=== PATIENT | male | born 1955 | race Caucasian/White ===

== ENCOUNTER → 2016-05-20 | Outpatient (CLI) | payer OTHER ==
--- NOTE | 2016-05-21 10:35 | P.PN ---
Subjective This is follow-up visit for this patient with a history of severe and chronic abdominal pain and generalized joint pain, patient had a history of non-Hodgkin lymphoma, status post chemo therapy and patient had thrombocytopenia and low white blood counts, for this reason patient is not a candidate for interventional pain management, , and is currently on pain medications 1-[place] 10/325 every 8 hours 2-A, 100 mg twice a day Patient denies any side effects of the medication, denies excessive drowsiness or sleepiness, denies suicidal ideation, and reports that the current pain medication is NOT helping To control the pain and improve activity of daily living the patient reported that he had cellulitis in his left foot area Physical Examinations : 1-Constitutiona : Cooperative , not in acute distress . 2-HEENT : nech ; supple , no Lymphadenopathy , no Thyromegaly , normal thyroid size . eyes : no ptosis , no icterus, no photophobia . ENT : normal of hearing , normal oropharynx , no Thrush . 3- Respiratory : Chest clear to auscultations Bilaterally , no wheezing , no Rhonchi . 4- Cardiovascular : regular rate and rhythem , S1 , S2 , no S3 , no S4. 5- Gastrointestinal : abdomen soft , bowel sounds positive all 4 quadrants 6- Genitourinary : Defferred . 7- neurologic : Cranial nerve II to XII intact , no focal neurological deffecit . 8-psychatric : alert , oriented X 3 , appropriate affect , intact judgment and insight . 9-Lymphatic : no Lymphadenopathy . 10- musculoskeltal : Cellulitis left foot area Assessment and plan = Chronic pain syndrome, pain related to malignancy (non-Hodgkin lymphoma ) , patient denies any side effect of the medication but he reported the current regimen is not helping enough, I will increase the dose of [place] to 10/325 every 6 hours dispense 120 with one refill, and [id number] and milligrams 3 times a day (anticipation of receiving Lyrica 100 mg twice a day) and patient will be referred to the wound clinic for evaluation regarding his left foot wound Objective - Vital Signs Vital signs: Intake & Output 05/20/16 05/21/16 05/21/16 18:59 06:59 18:59 Weight 92.986 kg
== END | disposition home or self-care (01) ==
LOC: PNWHC3 13:17
PROVIDERS: ATTEND Specialist
DX: G89.4 Chronic pain syndrome (principal); G89.3 Neoplasm related pain (acute) (chronic); C85.90 Non-Hodgkin lymphoma, unspecified, unspecified site; D69.6 Thrombocytopenia, unspecified; L03.116 Cellulitis of left lower limb; Z92.21 Personal history of antineoplastic chemotherapy; Z79.899 Other long term (current) drug therapy; Z79.891 Long term (current) use of opiate analgesic
CPT/HCPCS: 99211

== ENCOUNTER → 2016-07-09 | Outpatient (CLI) | payer OTHER ==
--- NOTE | 2016-07-15 12:48 | P.ARTDOP ---
Arterial Doppler LOWER EXTREMITY ARTERIAL DOPPLER: DATE OF SERVICE: 07/09/2016 Reason for study: Left ankle ulcer. Doppler waveforms: Multiphasic bilaterally throughout. Pulse volume recording: Normal configuration. Pressure gradients: None. Ankle-brachial indices: Greater than 1 bilaterally. Toe pressures: 85 on the right, 54 on the left Impression: Possible mild distal disease on the left. Circulatory status probably adequate for healing. No proximal disease noted clinical correlation recommended.
== END | disposition home or self-care (01) ==
LOC: RADUSWWP 09:31
PROVIDERS: ATTEND Family Medicine
DX: E11.622 Type 2 diabetes mellitus with other skin ulcer (principal); L97.321 Non-pressure chronic ulcer of left ankle limited to breakdown of skin
CPT/HCPCS: 93923

== ENCOUNTER → 2016-07-15 | Outpatient (CLI) | payer OTHER ==
[2016-07-15 15:56] VITALS: BP 124/72; PULSE 78; RESP 16; TEMP 98.1
--- NOTE | 2016-07-15 16:20 | P.CONS ---
History of Present Illness - Reason for Consult Consult date: 07/15/16 - Chief Complaint Neck pain and low back pain - History of Present Illness This pleasant 61-year-old male returns to the [facility] pain clinic today for continued evaluation of possible therapeutic intervention with regards to his chronic pain related complaints. He is interviewed, examined, and the chart is reviewed in full with the patient's full consent. Mr. Reynolds presents today complaining of a persistent neck pain with radiation into his shoulders and down his arms. In addition to this cervical radiculopathy-type symptoms, he also describes pain in his low back both in the midline and in the bilateral paravertebral area. Increased amounts of activity, sudden or rapid position changes also exacerbate both the neuraxial as well as radicular component to his pain. At many times during the day can find no position of comfort in his ability to tolerate some the simplest activities of his daily life has been markedly curtailed. This increasing functional limitations what eventually prompted him to seek more aggressive therapeutic intervention. At the time of his last visit because of increased levels of discomfort we raised his Jerome dosing to 10 mg 4 times daily. Unfortunately since this time Mr. Reynolds has begun to complain of some dizziness and/or dysphoria, which he attributes possibly to the increased level of opiates. At this point time I had a discussion with Mr. Reynolds regarding a variety of clinical situations. I advised him that he is increasing sedation and/or dizziness and uneasiness with a level of medications may in fact be partially due to the Lyrica and/or his increased Jerome levels. He greeted drop back his Jerome dosing to 3 times a day at the 10 mg level, monitor any changes associated with that and be ready to drop his Lyrica administration to 200 mg twice a day rather than his current level of 300. Hopefully these changes will make a difference in his quality of life and his ability to tolerate more of the activities he wishes to pursue. Prescriptions were written for him at the new dosing levels, and I instructed him to return to the [facility] clinic in 60 days at which time we will evaluate the efficacy of this new pharmacologic regimen. We of course would make results immediately available should the need arise and I told him he could call us at any time if he needed any additional intervention. Thank you so much for allowing us to participate in this very nice gentleman's care Past Medical History Past Medical History: Cancer, COPD, Diabetes Mellitus, Hypertension, Seizure Disorder Additional Past Medical History / Comment(s): LAST SEIZURE 40 YRS AGO, DIABETIC NEUROPATHY,EMPHYSEMA, cellulitis left leg. T cell nonhodgkins lymphoma since 2012. Currently havng treatment at the wound center for l ankle cellulitis. History of Any Multi-Drug Resistant Organisms: None Reported Past Surgical History: Hernia Repair Additional Past Surgical History / Comment(s): X3 Past Anesthesia/Blood Transfusion Reactions: No Reported Reaction Past Psychological History: Anxiety, Depression Smoking Status: Former smoker Past Alcohol Use History: Occasional Past Drug Use History: None Reported - Past Family History Sister(s) Family Medical History: Diabetes Mellitus Mother Family Medical History: COPD Medications and Allergies Home Medications Medication Instructions Recorded Confirmed Type Loratadine [Claritin] 10 mg PO QAM 04/17/14 07/15/16 History Pravastatin Sodium [Pravachol] 10 mg PO DAILY 04/17/14 07/15/16 History Insulin Glargine [Lantus] 15 unit SQ DAILY 04/26/14 07/15/16 History Albuterol Inhaler [Ventolin 1 - 2 puff INHALATION Q6HR PRN 10/01/14 07/15/16 History Inhaler] Multivitamin [Men's Multi-Vitamin] 1 each PO DAILY 10/01/14 07/15/16 History Sertraline HCl [Zoloft] 50 mg PO DAILY 10/01/14 07/15/16 History Metoprolol Succinate (ER) [Toprol 25 mg PO DAILY 07/10/15 07/15/16 History Xl] Insulin Aspart [NovoLOG] 2 unit SQ QID 03/24/16 07/15/16 History Omeprazole 20 mg PO DAILY 03/25/16 07/15/16 History Mupirocin 2% Oint [Bactroban 2% 1 applic TOPICAL DAILY 06/11/16 07/15/16 History Oint] Sulfamethox-Tmp 800-160Mg [Bactrim 1 tab PO Q12HR 07/06/16 07/15/16 History DS 800-160 mg] Allergies Allergy/AdvReac Type Severity Reaction Status Date / Time levofloxacin [From Levaquin] Allergy Rash/Hives Verified 07/09/16 11:08 metronidazole [From Flagyl] Allergy Rash/Hives Verified 07/09/16 11:08 amoxicillin [From Augmentin] AdvReac Diarrhea Verified 07/09/16 11:08 clavulanic acid AdvReac Diarrhea Verified 07/09/16 11:08 [From Augmentin] Physical Exam Osteopathic Statement: *. No significant issues noted on an osteopathic structural exam other than those noted in the History and Physical/Consult. Vitals: Vital Signs Temp Pulse Resp BP Pulse Ox 07/15/16 15:38 98.1 F 78 16 124/72 97 Intake and Output 07/15/16 07/15/16 07/15/16 06:59 14:59 22:59 Other: Weight 88.451 kg Patient Weight 07/16/16 06:59 Weight 88.451 kg
== END | disposition home or self-care (01) ==
LOC: PNWHC3 14:28
PROVIDERS: ATTEND Anesthesiology
DX: Z79.899 Other long term (current) drug therapy (principal); R42 Dizziness and giddiness; Z87.891 Personal history of nicotine dependence; Z79.4 Long term (current) use of insulin; Z88.1 Allergy status to other antibiotic agents; Z88.8 Allergy status to other drugs, medicaments and biological substances; J44.9 Chronic obstructive pulmonary disease, unspecified; I10 Essential (primary) hypertension; G40.909 Epilepsy, unspecified, not intractable, without status epilepticus; E11.40 Type 2 diabetes mellitus with diabetic neuropathy, unspecified
CPT/HCPCS: 99211

== ENCOUNTER → 2016-08-12 | Outpatient (CLI) | payer OTHER ==
[2016-08-12 14:47] VITALS: BP 123/81; PULSE 76; RESP 16; TEMP 98.1
--- NOTE | 2016-08-12 15:15 | P.PN ---
Progress Note - Text This is a 61-year-old gentleman with history of non-Hodgkin lymphoma and widespread body pain with recent pain in the left ankle due to a nonhealing wound. The patient also has poorly controlled diabetes. He still gets dizziness and he is being worked up for that at his primary care physician. The patient is receiving no chemotherapy at this time. The patient has soft nontender distended abdomen with large spleen. The patient lives by himself and has no support system Today I will continue with the [place] 10 mg 3 times a day and Lyrica at 300 mg a day. The patient looks depressed today I'll very denies any suicidal thoughts. The patient is to be referred to his primary care physician for the patient treatment. I will see the patient 2 months from now.
== END | disposition home or self-care (01) ==
LOC: PNWHC3 14:22
PROVIDERS: ATTEND Anesthesiology
DX: S91.002A Unspecified open wound, left ankle, initial encounter (principal); E11.9 Type 2 diabetes mellitus without complications; Z85.72 Personal history of non-Hodgkin lymphomas
CPT/HCPCS: 99211

== ENCOUNTER → 2016-10-07 | Outpatient (CLI) | payer OTHER ==
--- NOTE | 2016-10-07 14:50 | P.PN ---
Progress Note - Text Patient returns for followup for chronic knee and abdominal pain with radiation to back. Patient has history of non-Hodgkin's lymphoma and cannot have interventions secondary to thrombocytopenia. Patient continues on [place] and Lyrica medications for pain with some relief and is not undergoing chemotherapy at this time, although he did recently have bronchitis and was coughing quite a bit, and has been having some muscular pain on the right side of his abdomen for the past few days; this is improving. Patient denies adverse drug effects from medications. Today, pt denies new-onset weakness, bowel/bladder incontinence, or any other signs or symptoms of cauda equina syndrome. There are no signs of acute intoxication, and no indications of medication diversion or overuse. In addition to above, 13-point review of systems is also negative for chest pain , shortness of breath, changes in vision, changes in hearing, new onset weakness , abdominal pain, diarrhea, extreme fatigue, malaise, fever, skin changes, homicidal or suicidal ideation, or bowel or bladder incontinence. Vital Signs: Reviewed in EMR Gen: WDWN, AAOx3, NAD HEENT: NCAT, EOMI, hearing grossly normal Pulm: resp unlabored Abd: soft, TTP LUQ Neck: supple, trachea midline Lower extremity: decreased ROM knee flexion/extension secondary to pain Neuro: CN II-XII grossly intact, muscle strength lower extremities PRESERVED Imaging: Reviewed in EMR Assessment: 1. non-Hodgkin's lymphoma 2. chronic pain syndrome Plan: 1. Explanation: Opioid and psychological risk scores were reviewed. Diagnoses , prognoses, and multiple treatment options including but not limited to physical therapy, interventional therapies, adjuvant medical therapies, narcotic medication therapies, and surgery were discussed with the patient and all questions were answered to the patient's satisfaction. 2. Opioid agreement: Patient has previously signed narcotic agreement, and was orally counseled to not overuse, abuse, divert, or cell medications, and to take them as prescribed by only 1 healthcare provider. The patient was also counseled to store opioid medications in a safe and preferably locked location. Patient was also counseled against driving while using narcotic medications and also to not use alcohol or any illicit or recreational drugs. The patient verbalized understanding that lack of compliance with any of the above and likely result in failure to renew narcotic prescriptions, possible discharge from the clinic, and possible legal ramifications thereafter if indicated. 3. Counseling: The patient was counseled extensively on BODY MASS INDEX, EXERCISE. Specifically, the patient was instructed regarding the importance of smoking cessation, obesity, and exercise in the context of both chronic pain and overall health. 4. Procedures: none 5. Consultations: None 6. Investigations: None 7. Medications: [place] refilled 10 mg po TID #90 with no refills (for October, patient has meds for September), continue Lyrica at same dose 100 mg #90 with one refill 8. Disposition: f/u for re-eval in 8 weeks PQRS measures: 1-Patient's medications are documented in the chart. 2-Tobacco use is negative 3-Patient has not had a pneumococcal vaccine. 4-Advanced care planning discussed, patient unable to give. 5-Opioid contract signed with the patient. 6-Pain positive, follow-up visit or procedure scheduled 7-Patient's blood pressure measured and documented, and patient will follow up with the primary care due to hypertension. 8-Patient's weight was measured, and body mass index ABOVE the normal limits, and counseling was done. Patient instructed to follow up with PCP. 9-Patient WAS NOT identified as an unhealthy alcohol user.
[2016-10-07 14:55] VITALS: BP 143/88; PULSE 95; RESP 18; TEMP 98.6
== END | disposition home or self-care (01) ==
LOC: PNWHC3 14:33
PROVIDERS: ATTEND Anesthesiology
DX: C85.90 Non-Hodgkin lymphoma, unspecified, unspecified site (principal); G89.4 Chronic pain syndrome
CPT/HCPCS: 99211

== ENCOUNTER → 2016-11-19 | Outpatient (CLI) | payer OTHER ==
--- NOTE | 2016-11-19 09:26 | CT ---
EXAMINATION TYPE: CT chest wo con DATE OF EXAM: 11/19/2016 COMPARISON: 04/07/2016 HISTORY: SOB, COUGH CT DLP: 411.80 mGycm, Automated exposure control for dose reduction was used. CONTRAST: Performed injected with 0 mL of Omnipaque 300. TECHNIQUE: Axial images were obtained at 5 mm thick sections. Reconstructed images are reviewed on [employer] computer in the coronal plane. FINDINGS: Portion of the thyroid visualized is normal. Previous left lateral lung base nodules not identified. There is however in the same region some mini mal thickening which currently measures 0.5 x 0.8 cm in size which could correspond to the previous f inding. This appears slightly smaller than comparison. Scattered emphysematous blebs and bulla are pr esent within the lung olguin.. No enlarged mediastinal or hilar adenopathy is evident. The ascending aorta diameter at the level o f the main pulmonary artery is 3.6 cm. The main pulmonary artery diameter at the bifurcation is 2.9 cm. Coronary artery calcification is present. Limited CT sections are obtained through the upper abdomen. Some thickening of the gallbladder wall o r pericholecystic fluid may be present. Sludge within the gallbladder should be considered. This can be further evaluated with ultrasound. Spleen appears enlarged as visualized. IMPRESSIONS: 1. Tiny stable nodule left lung base. Continued follow-up with CT chest in 6 months is recommended. 2. Splenomegaly. 3. Abnormal findings of the gallbladder. Consider ultrasound of the right upper quadrant for closer e valuation.
== END | disposition home or self-care (01) ==
LOC: RADCTMAIN 08:31
PROVIDERS: ATTEND Internal Medicine Pulmonary Disease
DX: R91.1 Solitary pulmonary nodule (principal)
CPT/HCPCS: 71250

== ENCOUNTER → 2016-12-02 | Outpatient (CLI) | payer OTHER ==
[2016-12-02 14:04] VITALS: PULSE 83; RESP 14; TEMP 98.4
--- NOTE | 2016-12-02 14:30 | P.PN ---
Progress Note - Text Patient returns for followup for chronic knee and abdominal pain with radiation to back. Patient has history of non-Hodgkin's lymphoma and cannot have interventions secondary to thrombocytopenia. Patient continues on [place] and Lyrica medications for pain with some relief, but is requesting naproxen to take at dinnertime. Patient denies adverse drug effects from medications. Today, pt denies new-onset weakness, bowel/bladder incontinence, or any other signs or symptoms of cauda equina syndrome. There are no signs of acute intoxication, and no indications of medication diversion or overuse. In addition to above, 13-point review of systems is also negative for chest pain , shortness of breath, changes in vision, changes in hearing, new onset weakness , abdominal pain, diarrhea, extreme fatigue, malaise, fever, skin changes, homicidal or suicidal ideation, or bowel or bladder incontinence. Vital Signs: Reviewed in EMR Gen: WDWN, AAOx3, NAD HEENT: NCAT, EOMI, hearing grossly normal Pulm: resp unlabored Abd: soft, TTP LUQ Neck: supple, trachea midline Lower extremity: decreased ROM knee flexion/extension secondary to pain Neuro: CN II-XII grossly intact, muscle strength lower extremities PRESERVED Imaging: Reviewed in EMR Assessment: 1. non-Hodgkin's lymphoma 2. chronic pain syndrome Plan: 1. Explanation: Opioid and psychological risk scores were reviewed. Diagnoses , prognoses, and multiple treatment options including but not limited to physical therapy, interventional therapies, adjuvant medical therapies, narcotic medication therapies, and surgery were discussed with the patient and all questions were answered to the patient's satisfaction. 2. Opioid agreement: Patient has previously signed narcotic agreement, and was orally counseled to not overuse, abuse, divert, or cell medications, and to take them as prescribed by only 1 healthcare provider. The patient was also counseled to store opioid medications in a safe and preferably locked location. Patient was also counseled against driving while using narcotic medications and also to not use alcohol or any illicit or recreational drugs. The patient verbalized understanding that lack of compliance with any of the above and likely result in failure to renew narcotic prescriptions, possible discharge from the clinic, and possible legal ramifications thereafter if indicated. 3. Counseling: The patient was counseled extensively on BODY MASS INDEX, EXERCISE. Specifically, the patient was instructed regarding the importance of smoking cessation, obesity, and exercise in the context of both chronic pain and overall health. 4. Procedures: none 5. Consultations: None 6. Investigations: None 7. Medications: [place] refilled 10 mg po TID #90 with two refills, continue Lyrica at same dose 100 mg #90 with two refills, start naproxen 250 mg #60 to be taken up to BID with two refills. I instructed patient to ask his oncologist whether or not NSAIDs would be OK given his thrombocytopenia. 8. Disposition: f/u for re-eval in 12 weeks PQRS measures: 1-Patient's medications are documented in the chart. 2-Tobacco use is negative 3-Patient has not had a pneumococcal vaccine. 4-Advanced care planning discussed, patient unable to give. 5-Opioid contract signed with the patient. 6-Pain positive, follow-up visit or procedure scheduled 7-Patient's blood pressure measured and documented, and patient will follow up with the primary care due to hypertension. 8-Patient's weight was measured, and body mass index ABOVE the normal limits, and counseling was done. Patient instructed to follow up with PCP. 9-Patient WAS NOT identified as an unhealthy alcohol user.
== END ==
LOC: PNWHC3 13:38
PROVIDERS: ATTEND Anesthesiology
DX: C85.90 Non-Hodgkin lymphoma, unspecified, unspecified site (principal); Z79.891 Long term (current) use of opiate analgesic; Z79.899 Other long term (current) drug therapy
CPT/HCPCS: 99211

== ENCOUNTER 2017-02-07 09:50 | Emergency (ER) | payer OTHER ==
[2017-02-07 09:58] VITALS: TEMP 99.2
[2017-02-07] MEDS ORDERED: KETOROLAC 30 MG/ML 1 ML VIAL IVP STA (10:22)
--- NOTE | 2017-02-07 10:25 | ED ---
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 He was brought in by EMS after he states he fell because his knees and ankles gave out. He states he fell on his right side. Complains of pain and was left hip and left knee. He states he also hit his head. He denies any head pain he states he has chronic neck pain to his lower neck he denies any back or other injury. No nausea vomiting loss consciousness. Patient states he has 9/10 pain but is always had severe. MD Complaint: fall, other - Related Data Home Medications Medication Instructions Recorded Confirmed Loratadine [Claritin] 10 mg PO QAM 04/17/14 02/02/17 Pravastatin Sodium [Pravachol] 10 mg PO DAILY 04/17/14 02/02/17 Insulin Glargine [Lantus] 25 unit SQ DAILY 04/26/14 02/02/17 Albuterol Inhaler [Ventolin 1 - 2 puff INHALATION Q6HR PRN 10/01/14 02/02/17 Inhaler] Multivitamin [Men's Multi-Vitamin] 1 each PO DAILY 10/01/14 02/02/17 Sertraline HCl [Zoloft] 50 mg PO DAILY 10/01/14 02/02/17 Metoprolol Succinate (ER) [Toprol 25 mg PO DAILY 07/10/15 02/02/17 Xl] Insulin Aspart [NovoLOG] 2 unit SQ QID 03/24/16 02/02/17 Omeprazole 20 mg PO DAILY 03/25/16 02/02/17 Previous Rx's Medication Instructions Recorded HYDROcodone/APAP 10-325MG [[place] 10 mg PO Q8HR PRN #90 tab 12/02/16 10-325] Naproxen [Naprosyn] 250 mg PO BID PRN #60 tab 12/02/16 Pregabalin [Lyrica] 100 mg PO Q8HR #90 cap 08/16/17 Sulfamethox-Tmp 800-160Mg [Bactrim 1 tab PO Q12HR #60 tab 02/02/17 DS 800-160 mg] Ibuprofen 800 mg PO Q6HR PRN #20 tablet 02/07/17 Allergies Allergy/AdvReac Type Severity Reaction Status Date / Time levofloxacin [From Levaquin] Allergy Rash/Hives Verified 02/07/17 09:58 metronidazole [From Flagyl] Allergy Rash/Hives Verified 02/07/17 09:58 amoxicillin [From Augmentin] AdvReac Diarrhea Verified 02/07/17 09:58 clavulanic acid AdvReac Diarrhea Verified 02/07/17 09:58 [From Augmentin] Review of Systems ROS Statement: Those systems with pertinent positive or pertinent negative responses have been documented in the HPI. ROS Other: All systems not noted in ROS Statement are negative. Past Medical History Past Medical History: Cancer, COPD, Diabetes Mellitus, Hypertension, Seizure Disorder Additional Past Medical History / Comment(s): LAST SEIZURE 40 YRS AGO, DIABETIC NEUROPATHY,EMPHYSEMA, cellulitis left leg. T cell nonhodgkins lymphoma since 2012. Currently havng treatment at the wound center for l ankle cellulitis. History of Any Multi-Drug Resistant Organisms: None Reported Past Surgical History: Hernia Repair Additional Past Surgical History / Comment(s): X3 Past Anesthesia/Blood Transfusion Reactions: No Reported Reaction Past Psychological History: Anxiety, Depression Smoking Status: Former smoker Past Alcohol Use History: Occasional Past Drug Use History: None Reported - Past Family History Sister(s) Family Medical History: Diabetes Mellitus Mother Family Medical History: COPD General Exam - General Exam Comments Initial Comments: Is a well-developed well-nourished awake alert oriented 3 male he does demonstrate a [place] Scale of 15 Limitations: physical limitation General appearance: alert, in no apparent distress Head exam: Present: atraumatic, normocephalic, normal inspection Eye exam: Present: normal appearance, PERRL, EOMI. Absent: scleral icterus, conjunctival injection, periorbital swelling ENT exam: Present: mucous membranes dry Neck exam: Present: normal inspection, tenderness (Tennis palpation of the C7 C6 paraspinous muscles no definite spinous process tenderness. No step-off or crepitation). Absent: meningismus, lymphadenopathy Respiratory exam: Present: normal lung sounds bilaterally. Absent: respiratory distress, wheezes, rales, rhonchi, stridor Cardiovascular Exam: Present: regular rate, normal rhythm, normal heart sounds. Absent: systolic murmur, diastolic murmur, rubs, gallop, clicks GI/Abdominal exam: Present: soft, normal bowel sounds. Absent: distended, tenderness, guarding, rebound, rigid Rectal exam: Present: deferred Extremities exam: Present: normal inspection, full ROM, tenderness (Tennis palpation over both hips no step-off or crepitation no shortening or rotation. If the dressing seen over the left lower extremity consistent with the stated wound this under treatment. The left knee is slightly edematous compared to the right tenderness to palpation with no step-off crepitation or deformity noted.), normal capillary refill. Absent: pedal edema, joint swelling, calf tenderness Back exam: Present: normal inspection Neurological exam: Present: alert, oriented X3, CN II-XII intact Psychiatric exam: Present: normal affect, normal mood Skin exam: Present: warm, dry, normal color. Absent: rash Course Vital Signs 02/07/17 09:51 Temperature 99.2 F Pulse Rate 106 H Respiratory 20 Rate Blood Pressure 141/74 O2 Sat by Pulse 94 L Oximetry Medical Decision Making - Medical Decision Making I did discuss findings with the patient he'll be discharge is follow-up with his doctor and with orthopedics he does have an appointment to see Dr. Garnett in 2 days. - Lab Data Result diagrams: 02/07/17 11:03 02/07/17 11:03 Lab Results 02/07/17 02/07/17 02/07/17 Range/Units 11:03 11:03 11:03 WBC 2.7 L (3.8-10.6) k/uL RBC 4.14 L (4.30-5.90) m/uL Hgb 11.0 L (13.0-17.5) gm/dL Hct 33.5 L (39.0-53.0) % MCV 80.9 (80.0-100.0) fL MCH 26.6 (25.0-35.0) pg MCHC 32.9 (31.0-37.0) g/dL RDW 18.4 H (11.5-15.5) % Plt Count 71 L (150-450) k/uL Neutrophils % (Manual) 48 % Band Neutrophils % 2 % Lymphocytes % (Manual) 28 % Monocytes % (Manual) 19 % Eosinophils % (Manual) 3 % Neutrophils # (Manual) 1.30 (1.3-7.7) k/uL Lymphocytes # (Manual) 0.76 L (1.0-4.8) k/uL Monocytes # (Manual) 0.51 (0-1.0) k/uL Eosinophils # (Manual) 0.08 (0-0.7) k/uL Nucleated RBCs 0 (0-0) /100 WBC Polychromasia Present Hypochromasia Slight Poikilocytosis Moderate Anisocytosis Slight Microcytosis Slight Sodium 134 L (137-145) mmol/L Potassium 4.3 (3.5-5.1) mmol/L Chloride 106 (98-107) mmol/L Carbon Dioxide 20 L (22-30) mmol/L Anion Gap 8 mmol/L BUN 13 (9-20) mg/dL Creatinine 0.84 (0.66-1.25) mg/dL Est GFR (MDRD) Af Amer >60 (>60 ml/min/1.73 sqM) Est GFR (MDRD) Non-Af >60 (>60 ml/min/1.73 sqM) Glucose 199 H (74-99) mg/dL Calcium 7.9 L (8.4-10.2) mg/dL Magnesium 1.7 (1.6-2.3) mg/dL Total Bilirubin 1.9 H (0.2-1.3) mg/dL AST 22 (17-59) U/L ALT 27 (21-72) U/L Alkaline Phosphatase 136 H (38-126) U/L Total Creatine Kinase 39 L (55-170) U/L CK-MB (CK-2) 0.7 (0.0-2.4) ng/mL CK-MB (CK-2) Rel Index 1.8 Troponin I <0.012 (0.000-0.034) ng/mL Total Protein 7.1 (6.3-8.2) g/dL Albumin 3.1 L (3.5-5.0) g/dL - EKG Data -: EKG Interpreted by Hi EKG shows normal: sinus rhythm, axis, intervals, QRS complexes, ST-T waves ( Sinus tachycardia rate 104. Interval 192 QRS duration 80 QT since QTC of 380/ [address]-T wave changes) Rate: tachycardia - Radiology Data Radiology results: report reviewed (I did review the imaging and reports no acute fractures are seen is some questionable evidence of possible ligamentous injury left knee.), image reviewed Disposition Clinical Impression: Fall, Strain of left knee, Cervical strain, Dehydration Disposition: HOME SELF-CARE Condition: Good Instructions: Dehydration (ED), Fall Prevention for Older Adults (ED), Knee Pain (ED), Knee Immobilizer (ED) Prescriptions: Ibuprofen 800 mg PO Q6HR PRN #20 tablet PRN Reason: Pain Referrals: Lenora Hernandez MD [Primary Care Provider] - 1-2 days Magen Reynolds DO [Doctor of Osteopathic Medicine] - 1-2 days
[2017-02-07 11:25] LABS: Anisocytosis Slight; Aty Lym Flag Slight; CH 26.8; CHCM 33.4; HCT 33.5 % (39.0-53.0); HDW 4.33; Hypochromasia Slight; MCH 26.6 pg (25.0-35.0); MCHC 32.9 g/dL (31.0-37.0); MCV 80.9 fL (80.0-100.0); Microcytosis Slight; Poikilocytosis Moderate; RBC 4.14 m/uL (4.30-5.90); RDW 18.4 % (11.5-15.5); WBC 2.7 k/uL (3.8-10.6); WBC (Perox) 2.56
[2017-02-07 11:35] LABS: Add Differential Manual Differential
[2017-02-07 11:37] LABS: Band Neutrophils % 2 %; Nucleated Red Blood Cells 0 /100 WBC (0-0); Polychromasia Present; Total Cells Counted 100
[2017-02-07 11:41] LABS: ALT 27 U/L (21-72); AST 22 U/L (17-59); Alkaline Phosphatase 136 U/L (38-126); Anion Gap 8 mmol/L; Blood Urea Nitrogen 13 mg/dL (9-20); Calcium 7.9 mg/dL (8.4-10.2); Carbon Dioxide 20 mmol/L (22-30); Chloride 106 mmol/L (98-107); Glucose 199 mg/dL (74-99); Magnesium 1.7 mg/dL (1.6-2.3); Non-African American GFR(MDRD) >60 (>60 ml/min/1.73 sqM); Potassium 4.3 mmol/L (3.5-5.1); Sodium 134 mmol/L (137-145); Total Bilirubin 1.9 mg/dL (0.2-1.3); Total Protein 7.1 g/dL (6.3-8.2)
[2017-02-07 11:45] LABS: Creatine Kinase 39 U/L (55-170)
--- NOTE | 2017-02-07 11:48 | XR ---
EXAMINATION TYPE: XR chest 2V DATE OF EXAM: 02/07/2017 HISTORY: cough. REFERENCE: Previous study dated 12/17/2015. FINDINGS: Lung volumes are prominent. The heart is not enlarged. The lungs are clear. Pleural spaces are clear. IMPRESSION: COPD.
--- NOTE | 2017-02-07 11:50 | XR ---
EXAMINATION TYPE: XR cervical spine comp , 5 VIEWS DATE OF EXAM ORDERED: 02/07/2017 HISTORY: Pain. COMPARISON: None. FINDINGS: 2 body height and alignment are maintained. Atlantoaxial relationships are normal. There i s disc space loss and hypertrophic spondylosis at C4-5, C5-6 and C6-7. There is uncovertebral joint d isease at these levels. There is intervertebral foraminal narrowing on the left at C6-7. Intervertebral foramina are not well seen on the right. IMPRESSION: 1. NO ACUTE OSSEOUS LESION. 2. DEGENERATIVE CHANGE.
--- NOTE | 2017-02-07 11:51 | XR ---
EXAMINATION TYPE: XR knee complete LT , 3 VIEWS DATE OF EXAM ORDERED: 02/07/2017 HISTORY: Pain. COMPARISON: None. FINDINGS: No fracture, dislocation or joint effusion is seen. The joint spaces are reasonably well-m aintained. There may be some ligamentous laxity as a tibia slightly offset with respect to the femur. IMPRESSION: 1. NO ACUTE OSSEOUS LESION. 2. I CANNOT EXCLUDE SOME LIGAMENTOUS LAXITY.
--- NOTE | 2017-02-07 11:54 | XR ---
EXAMINATION TYPE: XR pelvis AP view , 2 VIEWS DATE OF EXAM ORDERED: 02/07/2017 HISTORY: Pain. COMPARISON: None. FINDINGS: There are degenerative changes in the hips and lumbar spine. The right hip is worse on the left. No acute fracture or other acute osseous lesion is seen. IMPRESSION: 1. NO ACUTE OSSEOUS LESION. 2. DEGENERATIVE CHANGE.
[2017-02-07 11:59] LABS: Creatine Kinase MB 0.7 ng/mL (0.0-2.4); Troponin I <0.012 ng/mL (0.000-0.034)
[2017-02-07 13:01] VITALS: BP 138/80; PULSE 94; RESP 18
== END 2017-02-07 13:41 | disposition home or self-care (01) ==
LOC: EC 09:50
DX: S16.1XXA Strain of muscle, fascia and tendon at neck level, initial encounter (principal); S86.812A Strain of other muscle(s) and tendon(s) at lower leg level, left leg, initial encounter; E86.0 Dehydration; R40.2412 Glasgow coma scale score 13-15, at arrival to emergency department; E11.9 Type 2 diabetes mellitus without complications; I10 Essential (primary) hypertension; F41.9 Anxiety disorder, unspecified; F32.9 Major depressive disorder, single episode, unspecified; Z87.891 Personal history of nicotine dependence; Z85.72 Personal history of non-Hodgkin lymphomas; Z79.899 Other long term (current) drug therapy; Z79.4 Long term (current) use of insulin; Z88.0 Allergy status to penicillin; Z88.1 Allergy status to other antibiotic agents; W19.XXXA Unspecified fall, initial encounter; Y92.002 Bathroom of unspecified non-institutional (private) residence as the place of occurrence of the external cause; Y93.01 Activity, walking, marching and hiking
CPT/HCPCS: 99284 ×2; 96374 ×2; 36415; 93005; 80053; 82550; 82553; 83735; 84484; 85025; 71020; 72050; 72170; 73562; L1830; J1885